=== PATIENT | female | born 1955 ===

== ENCOUNTER 2024-11-03 10:21 | Inpatient (IN) | payer MEDICARE, BC ==
[2024-11-02 21:33] VITALS: BP 138/74
[2024-11-02 22:32] VITALS: BP 138/74
[~2024-11-03] VITALS: Ht 162.6 cm; Wt 57.2 kg
[2024-11-03] MEDS ORDERED: FLUT1BLS15 INH (14:41)
[2024-11-03] MEDS ORDERED: GUAI400T58 PO (14:41)
[2024-11-03] MEDS ORDERED: BISA10SU61 RC (14:41)
[2024-11-03] MEDS ORDERED: LEVO125T8 PO (14:41)
[2024-11-03] MEDS ORDERED: POLY17PO4 PO (14:41)
[2024-11-03] MEDS ORDERED: ALBU2.5V38 NEB (14:41)
[2024-11-03] MEDS ORDERED: GUAI-671 PO (14:41)
[2024-11-03] MEDS ORDERED: PANT40TA49 PO (14:47)
[2024-11-03] MEDS ORDERED: IPRA3AMP23 NEB (14:47)
[2024-11-03] MEDS ORDERED: FLUT16SP16 NS (14:47)
[2024-11-03] MEDS ORDERED: GUAI5SYR PO (14:47)
[2024-11-03] MEDS ORDERED: SENN8.6T19 PO (14:49)
[2024-11-03] MEDS ORDERED: GUAI5LIQ10 PO (14:51)
[2024-11-03 15:14] VITALS: BP 147/67; TEMP 97.1; O2SAT 96
[2024-11-03] MEDS ORDERED: SENNOSIDES 1 TABLET PO PRN (15:45)
[2024-11-03] MEDS ORDERED: MIRALAX 17 GM POWD.PACK PO PRN (15:45)
[2024-11-03] MEDS ORDERED: GUAIFENESIN/D-METHORPHAN 10 ML UDC (DIABETIC FORMULA) PO PRN (15:45)
[2024-11-03] MEDS ORDERED: BISACODYL 10 MG SUPP.RECT RC PRN (15:45)
[2024-11-03] MEDS ORDERED: GUAIFENESIN/DEXTROMETHORPHAN 5 ML UDC PO PRN (16:30)
[2024-11-03 20:00] VITALS: BP_SYST 130; BP_DIAS 5; BP_DIAS 52; TEMP 97.8; O2SAT 96
[2024-11-03] MEDS: PANTOPRAZOLE SODIUM 40 MG TABLET.DR PO SCH (21:31)
[2024-11-04 05:18] VITALS: BP 129/67; TEMP 97.7; O2SAT 95
[2024-11-04] MEDS: LEVOTHYROXINE SODIUM 125 MCG TABLET PO SCH (06:35)
[2024-11-04] MEDS: FLUTICASONE PROP NASAL SPRAY 16 GM BOTTLE NS SCH (08:44)
[2024-11-04 13:19] LABS: BASOPHILS # (AUTO) 0.1 K/UL (0.0-0.2); BASOPHILS % (AUTO) 1.1 % (0.0-2.0); DIFFERENTIAL COMMENT 0; EOSINOPHILS # (AUTO) 0.3 K/uL (0.0-0.7); EOSINOPHILS % (AUTO) 4.2 % (0.0-7.0); HEMATOCRIT 27.9 % (31.2-41.9); HEMOGLOBIN 9.4 g/dL (10.9-14.3); LYMPHOCYTES # (AUTO) 0.8 K/uL (0.8-4.8); LYMPHOCYTES % (AUTO) 12.6 % (20.5-51.5); MEAN CORPUSCULAR HEMOGLOBIN 30.1 uug (24.7-32.8); MEAN CORPUSCULAR HGB CONC 34 g/dL (32.3-35.6); MEAN CORPUSCULAR VOLUME 89.7 fL (75.5-95.3); MONOCYTES # (AUTO) 0.4 K/uL (0.1-1.30); MONOCYTES % (AUTO) 5.5 % (0.0-11.0); NEUTROPHILS % (AUTO) 76.6 % (38.5-71.5); PLATELET COUNT (AUTO) 327 K/uL (179-408); RED BLOOD CELL COUNT(AUTO) 3.11 MIL/uL (3.63-4.92); RED CELL DISTRIBUTION WIDTH 18.8 % (12.3-17.7); WHITE BLOOD COUNT (AUTO) 6.6 K/uL (3.8-11.8)
[2024-11-04 13:28] LABS: CALCIUM 8.8 mg/dL (8.5-10.1); CARBON DIOXIDE 29 mmol/L (21-32); CHLORIDE 109 mmol/L (98-107); CREATININE 0.8 mg/dL (0.6-1.3); GLUCOSE 135 mg/dL (74-106); MAGNESIUM 1.9 mg/dL (1.8-2.4); PHOSPHOROUS 3.2 mg/dL (2.5-4.9); POTASSIUM 3.9 mmol/L (3.5-5.1); SODIUM SERUM 144 mmol/L (136-145); UREA NITROGEN, BLOOD 18 mg/dL (7-18)
[2024-11-04 14:44] LABS: THYROID STIMULATING HORMONE 3.712 mIU/mL (0.358-3.740)
[2024-11-04] MEDS: RIVAROXABAN 10 MG TABLET PO SCH (17:51)
[2024-11-04 20:19] VITALS: BP 134/61; TEMP 97.6; O2SAT 95
[2024-11-05 06:50] VITALS: BP 120/60; TEMP 97.6; O2SAT 96
[2024-11-05 07:00] VITALS: BP 120/60; TEMP 97.6; O2SAT 96
[2024-11-05] MEDS: ENSURE ENLIVE (VAN) 240 ML LIQUID PO SCH (07:56)
[2024-11-05 08:00] VITALS: BP 125/56; TEMP 97.6; O2SAT 96
[2024-11-05] MEDS ORDERED: APIXABAN 2.5 MG TABLET PO SCH (09:00)
[2024-11-05] MEDS: APIXABAN 5 MG TABLET PO SCH (09:17)
[2024-11-05 16:23] VITALS: BP 138/72; TEMP 97.6; O2SAT 97
[2024-11-05 20:00] VITALS: BP 144/52; TEMP 98; O2SAT 96
[2024-11-06 06:50] VITALS: BP 156/62; O2SAT 96
[2024-11-06 08:00] VITALS: BP 146/92; TEMP 97.7; O2SAT 97
[2024-11-06 17:00] VITALS: BP 151/68; TEMP 97.8; O2SAT 97
[2024-11-06 20:04] VITALS: BP 132/59; TEMP 97.2; O2SAT 97
[2024-11-07 06:40] VITALS: BP 142/51; TEMP 97.4; O2SAT 96
[2024-11-07 07:44] VITALS: BP 125/55; TEMP 98; O2SAT 98
[2024-11-07 16:04] VITALS: BP 126/65; TEMP 98; O2SAT 98
[2024-11-07 20:00] VITALS: BP 127/49; TEMP 98; O2SAT 98
[2024-11-07] MEDS: APIXABAN 5 MG TABLET PO SCH (21:11)
[2024-11-08 08:00] VITALS: BP 141/53; TEMP 97.8; O2SAT 96
[2024-11-08 16:40] VITALS: BP 140/58; TEMP 97.5; O2SAT 98
[2024-11-08 20:00] VITALS: BP 147/50; O2SAT 97
[2024-11-09 06:38] VITALS: BP 134/56; O2SAT 97
[2024-11-09 07:45] VITALS: BP 132/60; TEMP 98; O2SAT 97
== END 2024-11-09 11:50 | disposition home health service (06) | DRG 70 ==
LOC: EDBD
PROVIDERS: ADMIT Physical Medicine & Rehabilitation Pain Medicine; ATTEND Physical Medicine & Rehabilitation Pain Medicine
DX: G93.41 Metabolic encephalopathy (principal); J69.0 Pneumonitis due to inhalation of food and vomit; J96.01 Acute respiratory failure with hypoxia; I31.39 Other pericardial effusion (noninflammatory); E03.9 Hypothyroidism, unspecified; F03.90 Unspecified dementia, unspecified severity, without behavioral disturbance, psychotic disturbance, mood disturbance, and anxiety; I48.0 Paroxysmal atrial fibrillation; R53.1 Weakness; J22 Unspecified acute lower respiratory infection; B34.9 Viral infection, unspecified; D53.9 Nutritional anemia, unspecified; D69.6 Thrombocytopenia, unspecified; E03.8 Other specified hypothyroidism; I10 Essential (primary) hypertension; K58.0 Irritable bowel syndrome with diarrhea; Z95.0 Presence of cardiac pacemaker; R74.8 Abnormal levels of other serum enzymes
CPT/HCPCS: 36415; 83735; 83921; 84100; 84443; 85025; 97535-GO-CO; A4663; J3535